=== PATIENT | female | born 1955 | race Hispanic/Latino ===

== ENCOUNTER → 2022-08-06 | Outpatient (CLI) | payer OTHER | END | disposition home or self-care (01) | LOC: RAH 09:44 | PROVIDERS: ATTEND Internal Medicine | DX: I87.2 Venous insufficiency (chronic) (peripheral) (principal) | CPT/HCPCS: 93970 ==

== ENCOUNTER → 2022-11-09 | Outpatient (CLI) | payer OTHER, MEDICARE | END | disposition home or self-care (01) | LOC: SHCH 07:34 | PROVIDERS: ATTEND Internal Medicine Cardiovascular Disease | DX: I87.2 Venous insufficiency (chronic) (peripheral) (principal) | CPT/HCPCS: 93970 ==

== ENCOUNTER 2023-08-29 08:37 | Day surgery (SDC) | payer OTHER, MEDICARE ==
[2023-08-28 14:03] LABS: BASOPHILS # (AUTO) 0.02 K/uL (0.00-0.20); BASOPHILS % (AUTO) 0.2 % (0.0-5.0); EOSINOPHILS # (AUTO) 0.19 K/uL (0.00-0.70); EOSINOPHILS % (AUTO) 2.3 % (0.0-8.0); HEMATOCRIT 44.7 % (36-48); IMMATURE GRANULOCYTE ABSOLUTE 0.01 K/uL (0-1); LYMPHOCYTES # (AUTO) 1.9 K/uL (1.0-4.8); LYMPHOCYTES % (AUTO) 23.8 % (21.0-51.0); MEAN CORPUSCULAR HEMOGLOBIN 28.3 pg (27.0-33.0); MEAN CORPUSCULAR HGB CONC 31.3 g/dL (32.0-36.0); MEAN CORPUSCULAR VOLUME 90.5 fL (79-99); MONOCYTES # (AUTO) 0.5 K/uL (0.1-1.0); MONOCYTES % (AUTO) 5.5 % (3.0-13.0); NEUTROPHILS # (AUTO) 5.5 K/uL (1.8-7.7); NEUTROPHILS % (AUTO) 68.1 % (40.0-77.0); PLATELET COUNT (AUTO) 190 K/uL (130-400); RED BLOOD CELL COUNT(AUTO) 4.94 MIL/uL (4.00-5.50); RED CELL DISTRIBUTION WIDTH 13.9 % (11.0-15.5); WHITE BLOOD COUNT (AUTO) 8.2 K/uL (4.8-10.8)
[2023-08-28 14:11] LABS: CREATININE 0.8 mg/dL (0.5-1.5); POTASSIUM 4.2 mmol/L (3.5-5.1)
[2023-08-28 14:25] LABS: INR 1.09 (0.85-1.15); PROTHROMBIN TIME 12.6 SEC (9.6-11.6)
[2023-08-28 14:26] LABS: PARTIAL THROMBOPLASTIN TIME 38.3 SEC (26.3-35.5)
[2023-08-28 14:32] VITALS: BP 120/61; PULSE 82; RESP 16
[2023-08-28 15:04] LABS: B-TYPE NATRIURETIC PEPTIDE 32 pg/mL (0-100)
[2023-08-29] VITALS (7 sets, daily range): BP systolic 102–150; BP diastolic 50–68; PULSE 74–102; RESP 15–18
[~2023-08-29] VITALS: Ht 160 cm; Wt 93.7 kg
[~2023-08-29 08:37] MED LIST: AMIO200T68 PO; ATOR40TA71 PO; DILT120C78 PO; EMPA25TA PO; LEVO50CA4 PO; LISI2.5T13 PO; METF-446 PO; RIVA20TA PO; SEMA2PEN SQ
[2023-08-29] MEDS ORDERED: 0.9%NACL 1000ML 1,000 ML IV ONE (09:12)
[2023-08-29] MEDS ORDERED: CEFAZOLIN SODIUM 1 GM VIAL ONE (10:48)
[2023-08-29] MEDS ORDERED: LIDOCAINE HCL 1% MDV 50ML VIAL ONE (10:48)
[2023-08-29] MEDS ORDERED: IOHEXOL-350 50ML VIAL IV ONE (10:49)
[2023-08-29] MEDS ORDERED: BUPIVACAINE/PF 0.25% 30ML VIAL IJ ONE (10:49)
[2023-08-29] MEDS ORDERED: FENTANYL CITRATE PF 50 MCG/1 ML 2ML VIAL ONE (11:18)
[2023-08-29] MEDS ORDERED: MIDAZOLAM HCL 1 MG/ML 2ML VIAL ONE (11:18)
[2023-08-29] MEDS ORDERED: BACITRACIN 1 EACH PACKET TP ONE (11:33)
[2023-08-29] MEDS ORDERED: ACETAMINOPHEN WITH CODEINE 1 TAB TAB PO PRN ×2 (12:30)
[2023-08-29] MEDS ORDERED: ONDANSETRON 4MG INJ IV PRN (12:30)
== END 2023-08-29 14:25 | disposition home or self-care (01) ==
LOC: DAH 08:37
PROVIDERS: ATTEND Internal Medicine Interventional Cardiology
DX: Z45.010 Encounter for checking and testing of cardiac pacemaker pulse generator [battery] (principal); I49.5 Sick sinus syndrome; I48.11 Longstanding persistent atrial fibrillation; E78.2 Mixed hyperlipidemia; E11.41 Type 2 diabetes mellitus with diabetic mononeuropathy; E11.59 Type 2 diabetes mellitus with other circulatory complications; I10 Essential (primary) hypertension; E66.01 Morbid (severe) obesity due to excess calories; Z68.36 Body mass index [BMI] 36.0-36.9, adult; Z79.84 Long term (current) use of oral hypoglycemic drugs; Z79.899 Other long term (current) drug therapy
CPT/HCPCS: 80048; 83880; 85025; 85610; 85730; 36415; 71045 ×2; 93005; 33228; 82948 ×2; C1785; J3010; J0690; J7030; J0665; J2250; J3490; A4215; A4222; A4221; A4663; A4216; A4606; A4223 ×3; 99156; 99157; Q9967

== ENCOUNTER 2024-09-16 19:38 | Emergency (ER) | payer OTHER, MEDICARE ==
[~2024-09-16] VITALS: Ht 160 cm; Wt 99.8 kg
--- NOTE | 2024-09-16 21:03 | HMCIMG ---
CT LUMBAR SPINE W/O CONTRAST HISTORY: fall/low back pain TECHNIQUE: CT LUMBAR SPINE W/O CONTRAST. Coronal and sagittal reformats were obtained. CT was performed with one or more of the following dose reduction techniques: Automated exposure control, adjustment of the mA and/or kV according to the patient's size, or use of the iterative reconstruction technique. FINDINGS: Evaluation of the discs and cord is limited with CT. No evidence of compression fracture or subluxation. There is diffuse osteopenia degraded evaluation of the study. Multilevel degenerative changes are noted. Mild grade 1 anterolisthesis at L4-5. The visualized abdomen appears within normal limits. The aorta is normal in caliber. IMPRESSION: No acute compression fracture is identified. There is diffuse osteopenia degraded evaluation of the study. Multilevel degenerative changes are noted. Mild grade 1 anterolisthesis at L4-5.
--- NOTE | 2024-09-16 21:31 | ERN ---
General Chief Complaint: Low Back Pain/Injury Stated Complaint: C/O LOWER BACK PAIN X 2 WKS ; FELL 3 WKS AGO Time Seen by MD: 20:12 Time Seen by Midlevel: 20:12 Source: patient History of Present Illness Initial Comments PATIENT IS A 69-YEAR-OLD FEMALE PRESENTING TO THE EMERGENCY DEPARTMENT WITH LOW BACK PAIN THAT HAS BEEN ONGOING FOR THE LAST TWO WEEKS. SHE DOES REPORT FALLING THREE WEEKS AGO. SHE STATES IT WAS A MECHANICAL GROUND LEVEL FALL AND LANDED ON HER BUTTOCK. SHE WAS SEEN BY HER PRIMARY CARE DOCTOR PERFORMED X-RAYS THAT WERE ALL NEGATIVE. MOST RECENTLY A COUPLE OF DAYS AGO SHE DOES REPORT FALLING AGAIN AND POTENTIALLY RE-INJURING HER LOWER BACK. DENIES ANY HEAD INJURY OR ANY OTHER INJURY AT THIS TIME. Allergies: Coded Allergies: No Known Drug Allergies (Unverified Allergy, Unknown, 08/28/23) Home Meds Reported Medications Levothyroxine Sodium (Levothyroxine) 50 Mcg Capsule, 50 MCG PO DAILY, CAP 08/28/23 Empagliflozin (Jardiance) 25 Mg Tablet, 25 MG PO DAILY, TAB 08/28/23 Rivaroxaban (Xarelto) 20 Mg Tablet, 20 MG PO DAILYDINNER, TAB 08/28/23 Lisinopril (Lisinopril) 2.5 Mg Tablet, 2.5 MG PO DAILY, TAB 08/28/23 Amiodarone HCl (Amiodarone HCl) 200 Mg Tablet, 200 MG PO DAILY, TAB 08/28/23 Diltiazem HCl (Diltiazem ER) 120 Mg Capsule.er, 120 MG PO BID, CAP 08/28/23 Atorvastatin Calcium (Atorvastatin Calcium) 40 Mg Tablet, 40 MG PO DAILYDINNER, TAB 08/28/23 Semaglutide (Ozempic) 2 Mg/0.75 Ml (8 Mg/3 Ml) Pen.injctr, 2 MG SQ WEEKLY (FRIDAY) 08/28/23 Metformin HCl (Metformin HCl) 1,000 Mg Tablet, 1000 MG PO BID, TAB 08/28/23 Past Medical History Past Medical History: Diabetes-Type II, High Cholesterol, Heart Disease, Hypertension Past Surgical History: Pacer/AICD ROS Dictation CONSTITUTIONAL: NEGATIVE EXCEPT FOR HPI HEAD/FACE: NEGATIVE EXCEPT FOR HPI EENT: NEGATIVE EXCEPT FOR HPI RESPIRATORY: NEGATIVE EXCEPT FOR HPI GASTROINTESTINAL/ABDOMINAL: NEGATIVE EXCEPT FOR HPI GENITOURINARY: NEGATIVE EXCEPT FOR HPI MUSCULOSKELETAL: NEGATIVE EXCEPT FOR HPI INTEGUMENTARY: NEGATIVE EXCEPT FOR HPI NEUROLOGICAL/PSYCH: NEGATIVE EXCEPT FOR HPI HEMATOLOGIC/LYMPHATIC: NEGATIVE EXCEPT FOR HPI ALL SYSTEMS NEGATIVE, EXCEPT NOTED ABOVE. 13 POINT REVIEW OF SYSTEMS ASSESSED AND ALL NEGATIVE EXCEPT FOR ABOVE. Physical Exam Physical Exam Dictation VITAL SIGNS REVIEWED GENERAL APPEARANCE: ALERT, ORIENTED X 3, NO ACUTE DISTRESS, WELL DEVELOPED, NOURISHED. HEAD AND FACE: NON-TRAUMATIC. EYES: PERRL, PINK CONJUNCTIVAS, EYELID NO TRAUMA, ANTERIOR CHAMBER WITH ARCUS SENILIS. EARS: PINNAS INTACT AND NO SIGNS OF TRAUMA OR ERYTHEMA EAR CANALS CLEAR AND NO DISCHARGE TM NO ERYTHEMA NOSE: NO DISCHARGE, NO BLEEDING. OROPHARYNX: MOUTH NORMAL, TONGUE PINK, PHARYNX CLEAR,NO ERYTHEMA, TONSILS NO EXUDATES, NO ABSCESSES NOTED, MUCOUS MEMBRANE MOIST NECK: SUPPLE, NON-TENDER, NO THYROMEGALY, NO MASSES, NO JVD, NO BRUITS BREAST:DEFERRED CHEST:NO TENDERNESS, NO CREPITUS, NO PARADOXICAL MOVEMENT, NO RETRACTIONS LUNGS:CLEAR, WELL-VENTILATED, SYMMETRIC, NO RALES, NO WHEEZING, NO RHONCHI, NO STRIDOR, GOOD BREATH SOUNDS BILATERALLY HEART: REGULAR RATE, REGULAR RHYTHM, NO MURMUR, NO GALLOPS VASCULAR: NO PERIPHERAL EDEMA, ABDOMEN: SOFT, POSITIVE BOWEL SOUNDS, NONDISTENDED, NO GUARDING, NONTENDER, NO REBOUND, NO MASSES NO HEPATOMEGALY, NO SPLENOMEGALY, NO LEA'S SIGN, NO HERNIAS. RECTAL: DEFERRED GENITAL: DEFERRED NEUROLOGICAL: NORMAL SPEECH, MOTOR FUNCTION INTACT, SENSORY FUNCTION INTACT MUSCULOSKELETAL: NECK NONTENDER, FULL RANGE OF MOTION, MIDLINE TENDERNESS TO THE LUMBAR REGION, FULL RANGE OF MOTION, EXTREMITIES: NONTENDER, FULL RANGE OF MOTION SKIN: COLOR PINK, DRY, NO TURGOR, NO RASH, NO LACERATIONS, NO ABRASIONS, NO CONTUSIONS. LYMPHATIC: DEFERRED MDM MDM: DIFFERENTIAL DIAGNOSIS: LOW BACK SPRAIN, spinal stenosis, vertebral fracture, THERE ARE NO SOCIAL CONCERNS WITH THIS PATIENT. PRESCRIPTION DRUG MANAGEMENT PRESCRIPTIONS WILL INCLUDE: TORADOL MEDICAL MANAGEMENT AND EXAMINATION INTERPRETATION DISCUSSIONS WERE HAD BY ME WITH OTHER QUALIFIED HEALTHCARE PROFESSIONALS INDICATED FOR THE PATIENT'S CARE. ED Course Orders Procedure Category Date Status Time Ct Lumbar Spine W/O CT 09/16/24 Resulted Contrast 20:35 Morphine 2mg Syg PHA 09/16/24 Complete (Morphine 2mg Syg) 21:00 Current Medications Medications (Trade) Dose Ordered Sig/Rupal Route PRN Reason Start Time Stop Time Status Last Admin Dose Admin Morphine Sulfate (morPHINE 2MG SYG) 2 mg ONCE ONCE IM 09/16/24 21:00 09/16/24 21:01 DC Vital Signs Date Time Temp Pulse Resp B/P (MAP) Pulse Ox O2 Delivery O2 Flow Rate FiO2 09/16/24 19:40 97.3 77 20 181/84 95 Room Air [facility] [address] [place] [id number] IMAGING REPORT Signed PATIENT: HANNAH HUNT MR#: [id number] : 1955 SEX: F AGE: 69 LOCATION: [facility] ORDER 35 STATUS: REG ER REPORT#: [id number] SERVICE 34 REASON: fall/low back pain ORDERING PHYSICIAN: MARCELO MADRID PROCEDURE: L SPIN WO - CT LUMBAR SPINE W/O CONTRAST CT LUMBAR SPINE W/O CONTRAST HISTORY: fall/low back pain TECHNIQUE: CT LUMBAR SPINE W/O CONTRAST. Coronal and sagittal reformats were obtained. CT was performed with one or more of the following dose reduction techniques: Automated exposure control, adjustment of the mA and/or kV according to the patient's size, or use of the iterative reconstruction technique. FINDINGS: Evaluation of the discs and cord is limited with CT. No evidence of compression fracture or subluxation. There is diffuse osteopenia degraded evaluation of the study. Multilevel degenerative changes are noted. Mild grade 1 anterolisthesis at L4-5. The visualized abdomen appears within normal limits. The aorta is normal in caliber. IMPRESSION: No acute compression fracture is identified. There is diffuse osteopenia degraded evaluation of the study. Multilevel degenerative changes are noted. Mild grade 1 anterolisthesis at L4-5. DICTATED BY: CODY BENJAMIN MD DATE: 09/16/242057 ELECTRONICALLY SIGNED BY: CODY BENJAMIN MD DATE: 09/16/242102 DX & DISP Disposition: Discharge Departure Impression: Primary Impression: Low back strain Condition: Stable Additional Instructions: Your CT scan does not show any evidence of a fracture or dislocation. Your symptoms are most likely musculoskeletal in nature. Follow up with your primary care provider for repeat evaluation. Return to the ER for any new or worsening symptoms. Referrals: RENÉ LEBRON MD (PCP) Time of Disposition: 21:27 I have reviewed the case, and I agree with, Diagnosis and Plan I performed the substantive portion of the visit. I have reviewed and personall y made and approve the management plan that is documented in the note by myself or the JIN. I acknowledge for responsibility for the patient's management plan. MARCELO MADRID Sep 16, 2024 21:31
[2024-09-16] MEDS: morPHINE 2 MG SYG IM ONE (22:26)
--- NOTE | 2024-09-16 22:30 | NUR ---
MEDICATION SCANNED; PT REFUSED MEDICATION.
[2024-09-16 22:42] VITALS: BP 168/72; PULSE 71; RESP 18; TEMP 98; O2SAT 98
== END 2024-09-16 22:44 | disposition home or self-care (01) ==
LOC: EDH 19:38
DX: S39.012A Strain of muscle, fascia and tendon of lower back, initial encounter (principal); E11.9 Type 2 diabetes mellitus without complications; E78.00 Pure hypercholesterolemia, unspecified; I10 Essential (primary) hypertension; Z79.84 Long term (current) use of oral hypoglycemic drugs; Z79.85 Long-term (current) use of injectable non-insulin antidiabetic drugs; Z79.890 Hormone replacement therapy; Z79.899 Other long term (current) drug therapy; Z95.810 Presence of automatic (implantable) cardiac defibrillator; W18.39XA Other fall on same level, initial encounter; Y93.89 Activity, other specified; Y92.89 Other specified places as the place of occurrence of the external cause; Y99.8 Other external cause status
CPT/HCPCS: 72131; 99284; J2270

== ENCOUNTER 2025-03-24 10:43 | Observation (INO) | payer OTHER, MEDICAID ==
[2025-03-18 10:15] LABS: BASOPHILS # (AUTO) 0.03 K/uL (0.00-0.20); BASOPHILS % (AUTO) 0.4 % (0.0-5.0); EOSINOPHILS # (AUTO) 0.15 K/uL (0.00-0.70); EOSINOPHILS % (AUTO) 2.2 % (0.0-8.0); HEMATOCRIT 43.1 % (36-48); IMMATURE GRANULOCYTE ABSOLUTE 0.02 K/uL (0-1); LYMPHOCYTES # (AUTO) 1.9 K/uL (1.0-4.8); LYMPHOCYTES % (AUTO) 28.1 % (21.0-51.0); MEAN CORPUSCULAR VOLUME 87.6 fL (79-99); MONOCYTES # (AUTO) 0.4 K/uL (0.1-1.0); MONOCYTES % (AUTO) 6.1 % (3.0-13.0); NEUTROPHILS # (AUTO) 4.2 K/uL (1.8-7.7); NEUTROPHILS % (AUTO) 62.9 % (40.0-77.0); PLATELET COUNT (AUTO) 206 K/uL (130-400); RED BLOOD CELL COUNT(AUTO) 4.92 MIL/uL (4.00-5.50); WHITE BLOOD COUNT (AUTO) 6.8 K/uL (4.8-10.8)
[2025-03-18 10:22] LABS: CREATININE 0.6 mg/dL (0.5-1.0); POTASSIUM 4.3 mmol/L (3.5-5.1)
[2025-03-18 10:26] LABS: INR 1.01 (0.85-1.15); PROTHROMBIN TIME 10.7 SEC (9.6-11.6)
[2025-03-18 10:34] VITALS: BP 148/63; PULSE 75; RESP 18; TEMP 97.9
[2025-03-18 11:14] LABS: APPEARANCE,URINE CLEAR (CLEAR); BILIRUBIN,URINE NEGATIVE (NEGATIVE); COLOR,URINE LIGHT-YELLOW (YELLOW); GLUCOSE, URINE (UA) >=1000 mg/dL (NEGATIVE); KETONES,URINE NEGATIVE (NEGATIVE); LEUKOCYTE ESTERASE ,URINE 25 Leu/uL (NEGATIVE); NITRATE,URINE NEGATIVE (NEGATIVE); OCCULT BLOOD,URINE NEGATIVE (NEGATIVE); PH,URINE 5.5 (5.0-8.0); PROTEIN,URINE NEGATIVE (NEGATIVE); UROBILINOGEN,URINE 0.2 mg/dL (0.2-1.0)
[2025-03-18 11:26] LABS: ADD UA MICROSCOPIC YES
[2025-03-18 11:27] LABS: MUCUS,URINE RARE LPF (None Seen); SQUAMOUS EPITHELIAL CELL,UR FEW /HPF (0-2)
--- NOTE | 2025-03-18 16:18 | NUR ---
preop INCENTIVE SPIROMETRY TEACHING DONE BY STEFANO BETTS
--- NOTE | 2025-03-19 11:15 | EKG ---
[facility] Test Date: 2025-03-18 Test Time: 10:05:27 Pat Name: HANNAH HUNT Department: [facility] Room: Gender: F Eye Surgeon: [id number] : 1955 Requested By: YOAV ARTIS Order Number: [id number] Reading MD: Viji Reno Measurements Intervals [place] Rate: 71 P: 26 [place]: 139 QRS: -4 QRSD: 95 T: 9 QT: 411 QTc: 448 Interpretive Statements Sinus rhythm Low voltage, precordial leads Compared to ECG 08/28/2023 13:53:55 No significant changes Electronically Signed On 03-19-2025 13:20:58 CDT by Viji Reno Please click the below link to view image of tracing.
--- NOTE | 2025-03-21 09:23 | NUR ---
report pt called and reported she thinks she took her xarelto last night at 1999. dr vora notified. received orders to reschedule for . pt notified and instructed not to take xarelto for the next 3 days and to even move it away from her other pills. pt voiced understanding.
[~2025-03-24] VITALS: Ht 160 cm; Wt 95.3 kg
[2025-03-24] VITALS (22 sets, daily range): BP systolic 122–154; BP diastolic 53–77; PULSE 68–98; RESP 15–20; TEMP 97.4–98.2
[~2025-03-24 10:43] MED LIST changes: +ACET-2743 PO; +ACET-3540 PO; -AMIO200T68 PO; +AMIO200T73 PO; +DICLOFENAC TP; -DILT120C78 PO; +GLIM4TAB36 PO; +INSU300I3 SQ; -LEVO50CA4 PO; +OMEP20CA12 PO; -SEMA2PEN SQ; +TIRZ7.5P SQ; +TRAMADOL PO; +[UNRECOGNIZED DRUG - OTHER] PO; +[UNRECOGNIZED DRUG - OTHER] PO
[2025-03-24] MEDS ORDERED: TRANEXAMIC ACID 1000MG/10ML ONE (12:49)
[2025-03-24] MEDS ORDERED: VANCOMYCIN 500MG+NS 100ML 100 ML IV ONE (12:49)
[2025-03-24] MEDS: ceFAZolin SODIUM 2 GM VIAL ONE (12:54)
[2025-03-24] MEDS: 0.9%NACL 1000ML 1,000 ML IV ONE (12:54)
[2025-03-24] MEDS ORDERED: rocuRONium bROMide 10MG/1ML 5ML VL ONE (14:34)
[2025-03-24] MEDS ORDERED: ondanSETRON 4MG INJ ONE (14:34)
[2025-03-24] MEDS ORDERED: proPOFol 10 MG/ML 20ML VIAL IV ONE (14:34)
[2025-03-24] MEDS ORDERED: MIDAZOLAM HCL 1 MG/ML 2ML VIAL ONE (14:34)
[2025-03-24] MEDS ORDERED: FENTanyl CITRate PF 50 MCG/1 ML 2ML VIAL ONE ×3 (14:35→18:42)
[2025-03-24] MEDS: ceFAZolin SODIUM 2 GM VIAL IVPB ONE (15:55)
--- NOTE | 2025-03-24 18:14 | OP ---
Operative Note: DATE OF PROCEDURE: 03/24/25 SURGEON: YOAV ARTIS MD LITHOGRAPHIC PROOFER: [RICCO CASAS CFA] ANESTHESIA: [GENERAL ANESTHESIA PLUS REGIONAL BLOCK] ANESTHESIOLOGIST/WEATHERIZATION SPECIALIST: [RENA RICHARDSON WEATHERIZATION SPECIALIST] PREOPERATIVE DIAGNOSIS: [RIGHT KNEE OSTEOARTHRITIS] POSTOPERATIVE DIAGNOSIS: [RIGHT KNEE OSTEOARTHRITIS] IMPLANTS: [Biomet vanguard. Femur 62.5 right PS. Tibia 71 fixed cruciate. Tibial liner 18 x 71/75 PS plus. Patella 31 x 8 asymmetric] PROCEDURE: [Right total knee arthroplasty] ESTIMATED BLOOD LOSS: [150 mL] INDICATIONS: [The patient is a 70-year-old female with a history of pain to the right knee secondary to severe arthrosis. The patient has been treated conservatively no longer responded to treatment. She has been admitted for a right total knee arthroplasty. Procedure understood, risks, benefits and possible complications and agreed signed the consent form.] DESCRIPTION OF PROCEDURE: [DESCRIPTION OF PROCEDURE: [After adequate general anesthesia was achieved and regional block obtained the right lower extremity was prepped and draped in the usual manner previous placement of the tourniquet in the proximal thigh. The extremity was then elevated and exsanguinated with an Esmarch bandage and the tourniquet inflated to 250 mmHg the Esmarch band been then removed. With the knee in flexion a longitudinal incision was then made in the anterior aspect through the skin followed by dissection of the subcutaneous tissue. A bone trocar was then inserted just medial to the tibial tuberosity and through this we injected into the metaphysis a solution containing 500 mg of vancomycin mixed in 50 cc of normal saline. After the trocar was removed a paramedian approach was then made with the Bovie cautery cutting through the quadriceps tendon, medial patellar retinaculum and patellar tendon retinaculum. The retropatellar tendon fat was then excised and the soft tissue elements of the tibia were elevated subperiosteally and retractors were applied medially and laterally . The anterior and posterior cruciate ligaments were resected. With the use of a drill a starting hole was made in the distal femur entering the intramedullary canal and then after removal of the drill an intramedullary guide was inserted with a 5 degree valgus block that touched the distal femur and to this the distal femoral cutting guide was then applied anteriorly and was secured to the distal femur with the use of pins. The intramedullary guide was then removed and with the use of the oscillating saw we proceeded to resect the distal femur removing the fragments and the guide. The femoral sizer was then applied distally and drill holes were made removing the sizer and the 4-in-1 cutting block was then inserted and the anterior, posterior and chamfer cuts were made removing the fragments and the block. The PS cutting guide was then inserted and the intercondylar cut was made removing the fragment and the guide. The posterior cruciate ligament retractor was then inserted posterior to the tibia and this was brought forward proceeding then to apply the external tibial alignment guide and secured the proximal cutting guide to the tibia with the use of pins. With the use of the oscillating saw the proximal cut to the tibia tibia was made. The bone fragment was removed and the trial tibia plate was chosen. At this point the menisci were removed sharply and with the use of the curved osteotome the posterior osteophytes of the femur were removed. The trial components were then inserted at the femur and tibia wit h a trial tibial liner bringing the knee into extension noticing that the patient had a very stable knee in flexion, extension and with valgus and varus stress. The knee was maintained in extension and the patella was then addressed proceeding to measure its thickness and then with the use of the oscillating saw we removed 8 mm from the articular surface and restored the height with application of a trial component after 3 peg holes were made. The patellofemoral ligament was removed and then the patellofemoral tracking was checked noticing to be normal. At this moment all the components were removed, the tibia after the metaphyseal defect was created and while cement was being mixed on the back table we proceeded to irrigate the joint with antibiotic solut ion and then cover the entry to the femoral canal with a bone plug. Once the cement was ready we proceeded to apply it first to the tibia surface inserting the final component and then to the femoral surface and inserted the final component removing the excess cement and then applying a trial liner bringing the knee into extension for compression. Then we proceeded to irrigate the patella surface and dried it applying then bone cement and the final patellar component was inserted and was secured with application of a clamp. The joint was irrigated with a warm diluted Betadine solution while the cement dried followed by irrigation with antibiotic solution. The trial liner was removed as well as the patellar clamp and we proceeded then to irrigate the posterior aspect of the joint to remove all the remaining debris and the final tibial liner was inserted and locked against the tibia . The range of motion was checked and noticed to be adequate with full extension and flexion, no laxity in valgus or varus stress and with adequate patellofemoral tracking. The patient had no anterior or posterior drawer. After further irrigation the tourniquet was deflated and hemostasis was obtained. The wound was then closed with approximation of the quadriceps tendon, patellar retinaculum and patellar tendon retinaculum with #1 Vicryl crossed stitches alternating with #1 Ethibond stitches, and closure of the subcutaneous tissue with 2-0 Monocryl inverted stitches and the skin was closed with 3-0 Monocryl subcuticularly. The wound was covered with a suction dressing followed by application of an Evelio bandage for compression and the drapes were then removed transferring the patient to the hospital bed and taken to recovery room for follow-up by anesthesia. There were no complications during the procedure.] YOAV ARTIS MD Mar 24, 2025 18:14
[2025-03-24] MEDS ORDERED: PoTASSium chl 10% ELIXIR 20MEQ 20 MEQ/15 ML UDCUP PO PRN (18:30)
[2025-03-24] MEDS ORDERED: CALCIUM CARB 500MG PO PRN (18:30)
[2025-03-24] MEDS ORDERED: FERROUS FUMARATE 324 MG TABLET PO PRN (18:30)
[2025-03-24] MEDS ORDERED: DiphenhydrAMINE HCL 50 MG/ML VIAL IVP PRN (18:30)
[2025-03-24] MEDS ORDERED: PoTASSium chloRIDE 20MEQ ER 20 MEQ ERTAB PO PRN (18:30)
[2025-03-24] MEDS ORDERED: PoTASSium chloRIDE 20MEQ/100ML 100 ML IV PRN (18:30)
[2025-03-24] MEDS ORDERED: ondanSETRON 4MG INJ IVP PRN (18:30)
[2025-03-24] MEDS ORDERED: NEOSTIGMINE METHYLSULFATE 1MG/ML IV ONE (18:40)
[2025-03-24] MEDS ORDERED: GLYCOPYRROLATE 0.2 MG/ML 5 ML VIAL ONE (18:40)
[2025-03-24] MEDS: FENTanyl CITRate PF 50 MCG/1 ML 2ML VIAL ONE (19:00)
[2025-03-24] MEDS: FAMOTIDINE 20MG TAB PO SCH (20:56)
[2025-03-24] MEDS: HYDROcodone/APAP 5/325 1 TAB TABLET PO PRN (20:57)
[2025-03-24] MEDS: 0.9%NACL 1000ML 1,000 ML IV SCH (20:57)
[2025-03-24] MEDS: INSULIN humuLIN R 100 UNIT/ML 3ML SQ SCH (21:03)
[2025-03-24] MEDS: ceFAZolin SODIUM 2 GM VIAL IVP SCH (23:50)
[2025-03-25] VITALS (8 sets, daily range): BP systolic 104–134; BP diastolic 47–65; PULSE 84–105; RESP 16–20; TEMP 97.9–99.4; O2SAT 95–99
[2025-03-25 04:00] LABS: MEAN CORPUSCULAR HEMOGLOBIN 28.3 pg (27.0-33.0); MEAN CORPUSCULAR HGB CONC 32.3 g/dL (32.0-36.0); MEAN CORPUSCULAR VOLUME 87.7 fL (79-99); RED BLOOD CELL COUNT(AUTO) 3.99 MIL/uL (4.00-5.50); RED CELL DISTRIBUTION WIDTH 14.2 % (11.0-15.5); WHITE BLOOD COUNT (AUTO) 13.1 K/uL (4.8-10.8)
[2025-03-25 04:10] LABS: CREATININE 0.7 mg/dL (0.5-1.0); POTASSIUM 4.3 mmol/L (3.5-5.1)
[2025-03-25] MEDS: ceFAZolin SODIUM 1 GM VIAL ONE (07:27)
[2025-03-25] MEDS: acetaMINOPHEN 100 ML ONE (07:27)
[2025-03-25] MEDS: metFORmin HCL 500 MG TABLET PO SCH (08:32)
[2025-03-25] MEDS: atorVAStatin 40 MG TABLET PO SCH (08:32)
[2025-03-25] MEDS: AMIOdarone 200 MG TABLET PO SCH (08:32)
[2025-03-25] MEDS: EMPAGLIFLOZIN 25MG TABLET PO SCH (08:32)
[2025-03-25] MEDS: polyETHYLene GLYCol 3350 17 GM POWD.PACK PO SCH (08:39)
[2025-03-25] MEDS: GLIMEPIRIDE 2 MG TABLET PO SCH (08:39)
[2025-03-25] MEDS: ketOROlac 15MG/ML VIAL (15MG/ML) IV PRN (12:25)
--- NOTE | 2025-03-25 12:55 | NUR ---
DC PLAN PATIENT LIVES WITH DAUGHTER. INDEPENDENT ABLE TO PERFORM ADL'S. PATIENT HAS NO SERVICES. USES CANE AND WHEEL CHAIR. SHANT SIGNED FOR GARRET PACKET MADE AND SENT. Addendum: 03/25/25 at 1259 by ERNESTO SCHWARTZ RN CM Amended: Links added.
--- NOTE | 2025-03-25 13:20 | NUR ---
ORTHO COORDINATOR: TEACHING REGARDING DVT AND PNEUMONIA PREVENTION, PAIN EXPECTATIONS AND PAIN MANAGEMENT. PATIENT UP TO CHAIR, FAMILY MEMBERS AT BEDSIDE. NO HOSPITAL CERTIFIED HISTOLOGIC TECHNICIAN AVAILABLE, BUT PATIENT UNDERSTANDS AND RESPONDS IN [place]. PADMINI DRESSING DRY AND INTACT. PADMINI CASSETTE FUNCTIONING, LIGHT FLASHING GREEN. INCENTIVE SPIROMETER ON BESIDE TRAY. PATIENT RETURN DEMONSTRATED PROPER TECHNIQUE AND VERBALIZED PROPER FREQUENCY. B SCD SLEEVES AND MACHINE IN ROOM. PATIENT RETURN DEMONSTRATED FOOT FLEXION/EXTENSION EXERCISES, RATIONALE FOR SCD AND EXERCISES REVIEWED. PAIN CONTROLLED. NUMERICAL PAIN SCALE REVIEWED, PATIENT REMINDED PAIN MEDICATION AVAILABLE AND MUST BE REQUESTED. INSTRUCTED TO ASSIGN A NUMERIC VALUE AND TYPE OF PAIN WHEN CALLING FOR PAIN MEDICATION. PATIENT ENCOURAGED TO PERFORM SELF PAIN ASSESSMENTS EVERY FOUR HOURS. PATIENT AND FAMILY VERBALIZED UNDERSTANDING TO ALL INSTRUCTIONS. NO ADDITIONAL QUESTIONS OR CONCERNS AT THIS TIME.
--- NOTE | 2025-03-25 16:54 | NUR ---
DC IN [employer]OP SERVICE TECHNICIAN SAID PATIENT AND FAMILY CHANGED MIND WANTS [facility]. [facility]IN CONFIRMED PATIENT NOW WANTS HNR GAVE CONSENT. CONSENT UPDATED. SENT UPDATED INFO TO CARMELA, , AND [facility]. Addendum: 03/25/25 at 1658 by ERNESTO CSHWARTZ RN CM Amended: Links added.
[2025-03-25] MEDS: RIVAROXABAN 20 MG TABLET PO SCH (17:23)
--- NOTE | 2025-03-25 17:26 | NUR ---
[facility] [phone]. SENT INFO TO [facility] AND UPDATED FOR [facility]. PATIENT ACCEPTED. SOUTH SENT. WILL GO VIA [facility]. Addendum: 03/25/25 at 1728 by ERNESTO SCHWARTZ RN CM Amended: Links added.
--- NOTE | 2025-03-25 17:36 | OP ---
Operative Note: DATE OF PROCEDURE: 03/25/25 SURGEON: YOAV ARTIS MD DAMAGE CUTTER: [Herminia Ulloa CFA] ANESTHESIA: [General anesthesia plus regional block] ANESTHESIOLOGIST/FINANCIAL INVESTMENT ADVISER: [Low FINANCIAL INVESTMENT ADVISER] PREOPERATIVE DIAGNOSIS: [Right knee osteoarthritis] POSTOPERATIVE DIAGNOSIS: [Same] IMPLANTS: [BIOMET VANGUARD. Femur 65 right PS. Tibia 71 fixed cruciate. Tibial liner 8 x 71/75 PS plus. Patella size31 x 8, asymmetric PROCEDURE: [Right total knee arthroplasty] ESTIMATED BLOOD LOSS: [100 mL] INDICATIONS: [The patient is a 70-year-old female with a history of pain to the right knee secondary to severe arthrosis. The patient has been treated conservatively no longer responded to treatment. She has been admitted for a right total knee arthroplasty. Procedure understood, risks, benefits and possible complications and agreed signed the consent form.] DESCRIPTION OF PROCEDURE: [After adequate general anesthesia was achieved and regional block obtained the right lower extremity was prepped and draped in the usual manner previous placement of the tourniquet in the proximal thigh. The extremity was then elevated and exsanguinated with an Esmarch bandage and the tourniquet inflated to 250 mmHg the Esmarch band been then removed. With the knee in flexion a longitudinal incision was then made in the anterior aspect through the skin followed by dissection of the subcutaneous tissue. A bone trocar was then inserted just medial to the tibial tuberosity and through this we injected into the metaphysis a solution containing 500 mg of vancomycin mixed in 50 cc of normal saline. After the trocar was removed a paramedian approach was then made with the Bovie cautery cutting through the quadriceps tendon, medial patellar retinaculum and patellar tendon retinaculum. The retropatellar tendon fat was then excised and the soft tissue elements of the tibia were elevated subperiosteally and retractors were applied medially and laterally . The anterior and posterior cruciate ligaments were resected. With the use of a drill a starting hole was made in the distal femur entering the intramedullary canal and then after removal of the drill an intramedullary guide was inserted with a 5 degree valgus block that touched the distal femur and to this the distal femoral cutting guide was then applied anteriorly and was secured to the distal femur with the use of pins. The intramedullary guide was then removed and with the use of the oscillating saw we proceeded to resect the distal femur removing the fragments and the guide. The femoral sizer was then applied distally and drill holes were made removing the sizer and the 4-in-1 cutting block was then inserted and the anterior, posterior and chamfer cuts were made removing the fragments and the block. The PS cutting guide was then inserted and the intercondylar cut was made removing the fragment and the guide. The posterior cruciate ligament retractor was then inserted posterior to the tibia and this was brought forward proceeding then to apply the external tibial alignment guide and secured the proximal cutting guide to the tibia with the use of pins. With the use of the oscillating saw the proximal cut to the tibia tibia was made. The bone fragment was removed and the trial tibia plate was chosen. At this point the menisci were removed sharply and with the use of the curved osteotome the posterior osteophytes of the femur were removed. The trial components were then inserted at the femur and tibia with a trial tibial liner bringing the knee into extension noticing that the patient had a very stable knee in flexion, extension and with valgus and varus stress. The knee was maintained in extension and the patella was then addressed proceeding to measure its thickness and then with the use of the oscillating saw we removed 8 mm from the articular surface and restored the height with application of a trial component after 3 peg holes were made. The patellofemoral ligament was removed and then the patellofemoral tracking was checked noticing to be normal. At this moment all the components were removed, the tibia after the metaphyseal defect was created and while cement was being mixed on the back table we proceeded to irrigate the joint with antibiotic solution and then cover the entry to the femoral canal with a bone plug. Once the cement was ready we proceeded to apply it first to the tibia surface inserting the final component and then to the femoral surface and inserted the final component removing the excess cement and then applying a trial liner bringing the knee into extension for compression. Then we proceeded to irrigate the patella surface and dried it applying then bone cement and the final patellar component was inserted and was secured with application of a clamp. The joint was irrigated with a warm diluted Betadine solution while the cement dried followed by irrigation with antibiotic solution. The trial liner was removed as well as the patellar clamp and we proceeded then to irrigate the posterior aspect of the joint to remove all the remaining debris and the final tibial liner was inserted and locked against the tibia . The range of motion was checked and noticed to be adequate with full extension and flexion, no laxity in valgus or varus stress and with adequate patellofemoral tracking. The patient had no anterior or posterior drawer. After further irrigation the tourniquet was deflated and hemostasis was obtained. The wound was then closed with approximation of the quadriceps tendon, patellar retinaculum and patellar tendon retinaculum with #1 Vicryl crossed stitches alternating with #1 Ethibond stitches, and closure of the subcutaneous tissue with 2-0 Monocryl inverted stitches and the skin was closed with 3-0 Monocryl subcuticularly. The wound was covered with a suction dressing followed by application of an Evelio bandage for compression and the drapes were then removed transferring the patient to the hospital bed and taken to recovery room for follow-up by anesthesia. There were no complications during the procedure.] YOAV ARTIS MD Mar 25, 2025 17:36
--- NOTE | 2025-03-25 17:47 | PN ---
Postop day 1. Status post right total knee arthroplasty. Vital signs stable. Afebrile. Laboratory has been reviewed. The patient is awake, alert and oriented x3. Respiratory effort is normal. The right lower extremity shows mild edema, the incision is well healed and the dressing is intact. Distal neurovascular exam is normal. Assessment: Status post right total knee arthroplasty. Plan: The patient is to continue with physical therapy and rehabilitation. Awaiting for acceptance at [facility] and rehab. Continue with pre- admission anticoagulation treatment. Vitals/Labs Vital Signs Date Time Temp Pulse Resp B/P (MAP) Pulse Ox O2 Delivery O2 Flow Rate FiO2 03/25/25 16:00 97.9 88 16 104/47 95 Room Air 03/25/25 08:00 0 21 Laboratory Tests 03/25/25 03:50 Medications Current Medications Cefazolin Sodium 2 gm STK-MED ONCE .ROUTE; Start 03/24/25 at 12:32; Stop 03/24/25 at 12:32; Status DC Sodium Chloride 1,000 ml @ As Directed STK-MED ONCE IV Last administered on 03/24/25at 12:54; Start 03/24/25 at 12:32; Stop 03/24/25 at 12:32; Status DC Tranexamic Acid 1,000 mg STK-MED ONCE .ROUTE; Start 03/24/25 at 12:49; Stop 03/24/25 at 12:49; Status DC Vancomycin HCl 100 ml @ As Directed STK-MED ONCE IV; Start 03/24/25 at 12:49; Stop 03/24/25 at 12:50; Status DC Cefazolin Sodium 1 gm STK-MED ONCE .ROUTE; Start 03/24/25 at 12:52; Stop 03/24/25 at 12:52; Status DC Ondansetron HCl 4 mg STK-MED ONCE .ROUTE; Start 03/24/25 at 14:34; Stop 03/24/25 at 14:34; Status DC Propofol 200 mg STK-MED ONCE IV; Start 03/24/25 at 14:34; Stop 03/24/25 at 14:34; Status DC Midazolam HCl 2 mg STK-MED ONCE .ROUTE; Start 03/24/25 at 14:34; Stop 03/24/25 at 14:34; Status DC Rocuronium [place] 50 mg STK-MED ONCE .ROUTE; Start 03/24/25 at 14:34; Stop 03/24/25 at 14:35; Status DC Fentanyl Citrate 100 mcg STK-MED ONCE .ROUTE; Start 03/24/25 at 14:35; Stop 03/24/25 at 14:36; Status DC Cefazolin Sodium 2 gm STK-MED ONCE IVPB Last administered on 03/24/25at 15:55; Start 03/24/25 at 15:55; Stop 03/24/25 at 16:32; Status DC Vancomycin HCl 500 mg STK-MED ONCE IJ Last administered on 03/24/25at 16:19; Start 03/24/25 at 16:19; Stop 03/24/25 at 16:32; Status DC Cefazolin Sodium 3 gm STK-MED ONCE IVPB Last administered on 03/24/25at 16:19; Start 03/24/25 at 16:19; Stop 03/24/25 at 16:32; Status DC Fentanyl Citrate 100 mcg STK-MED ONCE .ROUTE; Start 03/24/25 at 16:57; Stop 03/24/25 at 16:57; Status DC Acetaminophen 100 ml @ As Directed STK-MED ONCE .ROUTE; Start 03/24/25 at 18:10; Stop 03/24/25 at 18:10; Status DC Sodium Chloride 1,000 ml @ 100 mls/hr Q10H IV Last administered on 03/25/25at 04:34; Start 03/24/25 at 18:30; Stop 03/25/25 at 18:29 Polyethylene Glycol 17 gm DAILY PO Last administered on 03/25/25at 08:39; Start 03/25/25 at 09:00; Stop 04/24/25 at 08:59 Bisacodyl 10 mg DAILY PRN RC; Start 03/27/25 at 18:30; Stop 04/26/25 at 18:29 Ketorolac Tromethamine 15 mg Q6H PRN IV Last administered on 03/25/25at 12:25; Start 03/24/25 at 18:30; Stop 03/29/25 at 18:29 Famotidine 20 mg BID PO Last administered on 03/25/25at 08:32; Start 03/24/25 at 21:00; Stop 04/23/25 at 20:59 Ferrous Fumarate 324 mg DAILY PRN PO; Start 03/24/25 at 18:30; Stop 04/23/25 at 18:29 Ondansetron HCl 4 mg Q6H PRN IVP; Start 03/24/25 at 18:30; Stop 04/23/25 at 18:29 Calcium Carbonate 500 mg Q12H PRN PO; Start 03/24/25 at 18:30; Stop 04/23/25 at 18:29 Diphenhydramine HCl 25 mg Q6H PRN IVP; Start 03/24/25 at 18:30; Stop 04/23/25 at 18:29 Insulin Human Regular INSULIN SLIDING SCAL... ACHS SQ Last administered on 03/25/25at 12:10; Start 03/24/25 at 21:00; Stop 04/23/25 at 20:59 Cefazolin Sodium 2 gm Q8H IVP Last administered on 03/25/25at 07:21; Start 03/24/25 at 23:30; Stop 03/25/25 at 07:31; Status DC Potassium Chloride 100 ml @ 100 mls/hr AD PRN IV; Start 03/24/25 at 18:30; Stop 04/23/25 at 18:29 Potassium Chloride 20 meq AD PRN PO; Start 03/24/25 at 18:30; Stop 04/23/25 at 18:29 Potassium Chloride 20 meq AD PRN PO; Start 03/24/25 at 18:30; Stop 04/23/25 at 18:29 Acetaminophen/ Hydrocodone Bitart Q4H PRN PO Last administered on 03/25/25at 08:39; Start 03/24/25 at 18:30; Stop 03/29/25 at 18:29 Glycopyrrolate 1 mg STK-MED ONCE .ROUTE; Start 03/24/25 at 18:40; Stop 03/24/25 at 18:40; Status DC Neostigmine Methylsulfate 10 mg STK-MED ONCE IV; Start 03/24/25 at 18:40; Stop 03/24/25 at 18:40; Status DC Fentanyl Citrate 100 mcg STK-MED ONCE .ROUTE; Start 03/24/25 at 18:42; Stop 03/24/25 at 18:42; Status DC Fentanyl Citrate 100 mcg STK-MED ONCE .ROUTE Last administered on 03/24/25at 19:00; Start 03/24/25 at 18:57; Stop 03/24/25 at 18:58; Status DC Amiodarone HCl 200 mg DAILY PO Last administered on 03/25/25at 08:32; Start 03/25/25 at 09:00; Stop 04/24/25 at 08:59 Atorvastatin Calcium 40 mg AM PO Last administered on 03/25/25at 08:32; Start 03/25/25 at 09:00; Stop 04/24/25 at 08:59 Empaglifozin 25 mg DAILY PO Last administered on 03/25/25at 08:32; Start 03/25/25 at 09:00; Stop 04/24/25 at 08:59 Lisinopril 2.5 mg HS PO; Start 03/25/25 at 21:00; Stop 04/24/25 at 20:59 Rivaroxaban 20 mg DAILYDINNER PO; Start 03/25/25 at 17:00; Stop 04/24/25 at 16:59 Glimepiride 4 mg AM PO Last administered on 03/25/25at 08:39; Start 03/25/25 at 09:00; Stop 04/24/25 at 08:59 Insulin Glargine 48 units HS SQ; Start 03/25/25 at 21:00; Stop 04/24/25 at 20:59 Metformin HCl 1,000 mg BIDMEALS PO Last administered on 03/25/25at 08:32; Start 03/25/25 at 08:00; Stop 04/24/25 at 07:59 Pantoprazole Sodium 40 mg DAILY PRN PO; Start 03/24/25 at 22:30; Stop 04/23/25 at 22:29 Home Med DAILY PO; Start 03/25/25 at 09:00; Stop 04/24/25 at 08:59 YOAV ARTIS MD Mar 25, 2025 17:47
--- NOTE | 2025-03-25 17:52 | DS ---
DISCHARGE SUMMARY [Date of admission: 03/24/2025 Date of discharge: 03/26/2025 Final diagnosis: Right Knee osteoarthritis Surgical procedures: Right total Knee arthroplasty on 03/24/25 Summary of History and Physical: The patient is a 70 year-old female with history of severe arthrosis to the right knee that has been present for several years and has been treated conservatively with no longer adequate response to treatment. The patient is being admitted for total knee arthroplasty. Previous medical history: Obesity, hypertension, hyperlipidemia, diabetes mellitus, paroxysmal atrial fibrillation. Osteoarthritis, GERD. Previous surgical history: Placement of pacemaker and battery replacement Family history: Parents with the patient states that there is no health family issues. Social history: Negative for use of tobacco or alcohol. 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 Review of system: Negative on admission Hospital course: The patient was admitted and taken to the operating room for a right total knee arthroplasty, procedure that went uneventful. Postoperatively the patient remained hemodynamically stable and afebrile. The patient received antibiotic and anticoagulation prophylaxis as per protocol. The patient was evaluated by physical therapy and started rehabilitation treatment with ambulation with the use of walker, weightbearing as tolerated, range of motion exercises and bed transfers. The patient was also evaluated by case management and arrangements were made for discharge to a prison facility. The patient tolerated diet well. On postop day #1 all the arrangements were completed and the patient was dismissed on post-op day #2. Condition on discharge: Good Disposition: The patient will be dismissed to a prison. Follow-up will be done at the office in 3 weeks. The patient is to continue with physical therapy and rehabilitation at the facility and be ambulatory with the use of a walker, weightbearing as tolerated. Continue taking pain medication as instructed as well as anticoagulation. Continue with home medications also as instructed and continue with pre admission diet.] YOAV ARTIS MD Mar 25, 2025 17:52
[2025-03-25] MEDS: LISINOPRIL 2.5 MG TABLET PO SCH (20:26)
[2025-03-25] MEDS: INSULIN GLARgine 100 UNITS/ML 10 ML VIAL SQ SCH (20:28)
[2025-03-26] VITALS (8 sets, daily range): BP systolic 92–136; BP diastolic 49–57; PULSE 85–104; RESP 18–20; TEMP 97.9–99.4; O2SAT 92–93
[2025-03-26] MEDS ORDERED: HYDR-4060 PO (07:39)
[2025-03-26] MEDS: PANTOPrazole 40 MG TAB DR PO PRN (08:56)
--- NOTE | 2025-03-26 09:45 | NUR ---
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 PATIENT HAD DEVELOPED 2 MEDIUM ANND 3 SMALL BLISTERS ON TAGADERM PART OF DRESSING. WILL CALL ATTENDING PHYSICIAN FOR FURTHER RECOMMENDATIONS.
--- NOTE | 2025-03-26 10:14 | NUR ---
ATTENDING PHYSICIAN CALLED BACK AND MADE AWARE OF PATIENT. PER DOCTOR'S RECOMMENDATIONS I DRAINED BLISTERS AND MADE SURE PADMINI DRESSING WAS STILL INTACT. WILL MONITOR THE PATIENT THROUGH OUT MY SHIFT AND WILL REPORT THIS TO NURSE AT SNF.
--- NOTE | 2025-03-26 15:18 | NUR ---
[employer]-auth pending Per Milady Alexander @ [employer]. Ins auth remains pending at this time. [facility] Pending determination. CMD notified of above.
--- NOTE | 2025-03-26 21:21 | NUR ---
PT LEFT SITTING IN CHAIR DID NOT WANT TO GO TO BED JUST YET. INSTRUCTED PT TO PLEASE CALL WHEN SHE IS READY TO BE PLACED IN BED. SHE VERBALIZED UNDERSTANDING. HAS STOOL TO BLE, CALL LIGHT LEFT WITHIN REACH.
--- NOTE | 2025-03-26 22:00 | NUR ---
PT PLACED BACK IN BED. RESTING COMFORTABLY, SCD'S CONNECTED, DENIES PAIN. BED ALARM PUT ON.
[2025-03-27 04:00] VITALS: BP 124/53; PULSE 90; RESP 20; TEMP 98.4
[2025-03-27 08:00] VITALS: BP 133/58; PULSE 91; RESP 18; TEMP 98.4; O2SAT 98
[2025-03-27 12:00] VITALS: BP 103/53; PULSE 93; RESP 15; TEMP 98
--- NOTE | 2025-03-27 14:00 | NUR ---
PATIENT IS DISCHARGED. REPORT CALLED IN TO KAMILAH VEGA AT [facility]. IV TAKEN OUT WITH CATHETER INTACT. EDUCATION PROVIDED TO PATIENT ON MEDICATIONS AND PHYSICIANS DIRECTIONS. PATIENT TAKEN BY TRANSPORT.
[2025-03-27] MEDS ORDERED: BisaCODYL 10 MG SUPP.RECT RC PRN (18:30)
== END 2025-03-27 14:00 ==
LOC: DAH 10:43 → DAHIP 10:44 → 4CH 20:02
PROVIDERS: ADMIT Orthopaedic Surgery; ATTEND Orthopaedic Surgery
DX: M17.11 Unilateral primary osteoarthritis, right knee (principal); M25.561 Pain in right knee; E11.9 Type 2 diabetes mellitus without complications; E66.9 Obesity, unspecified; E78.5 Hyperlipidemia, unspecified; I10 Essential (primary) hypertension; I48.0 Paroxysmal atrial fibrillation; K21.9 Gastro-esophageal reflux disease without esophagitis; Z98.890 Other specified postprocedural states; Z79.899 Other long term (current) drug therapy
CPT/HCPCS: 80048 ×2; 85025; 85610; 87086; 81001; 36415 ×2; 93005; 87641; 96365; 64447; 27447; 82948 ×14; 88311; 88304; 96376 ×3; 96366; 96375; 85027; 97161; 97116 ×5; 97530 ×3; J1815 ×7; G0378 ×68; A4223 ×2; A4600; A4663; J7030 ×2; J7120; A4649 ×4; J0690 ×6; J3010 ×4; J3490 ×2; J2250; J2704; J2405; J2710; J3370 ×2; A9272; A4930 ×2; C1713; C1776; A4215; A4222; A4221; A4216; J1885 ×5